=== PATIENT | male | born 1950 | race Caucasian/White ===

== ENCOUNTER → 2019-08-14 10:02 | Outpatient (BNVA) | payer MEDICARE, BC, SELFPAY | PROVIDERS: Family Provider Family Medicine; PCP Family Medicine; Visit Provider Specialist | DX: G51.39 Clonic hemifacial spasm, unspecified (principal); G50.9 Disorder of trigeminal nerve, unspecified | CPT/HCPCS: 64612; J0585 ==

== ENCOUNTER → 2019-11-27 12:13 | Outpatient (BNVA) | payer MEDICARE, BC, SELFPAY | PROVIDERS: Family Provider Family Medicine; PCP Family Medicine; Visit Provider Specialist | DX: G43.909 Migraine, unspecified, not intractable, without status migrainosus (principal); G50.9 Disorder of trigeminal nerve, unspecified; G51.31 Clonic hemifacial spasm, right | CPT/HCPCS: 64612; J0585 ==

== ENCOUNTER → 2021-01-24 09:48 | Outpatient (BNVA) | payer MEDICARE, BC, SELFPAY | PROVIDERS: Family Provider Family Medicine; PCP Family Medicine; Visit Provider Specialist | DX: G50.9 Disorder of trigeminal nerve, unspecified (principal); G51.31 Clonic hemifacial spasm, right; Z87.891 Personal history of nicotine dependence | CPT/HCPCS: 99213 ==

== ENCOUNTER → 2021-07-25 09:44 | Outpatient (BNVA) | payer MEDICARE, BC, SELFPAY | PROVIDERS: Family Provider Family Medicine; PCP Family Medicine; Visit Provider Specialist | DX: G50.0 Trigeminal neuralgia (principal); Z71.85 Encounter for immunization safety counseling | CPT/HCPCS: 99213 ==

== ENCOUNTER → 2022-07-25 10:32 | Outpatient (BNVA) | payer MEDICARE, BC, SELFPAY | PROVIDERS: Family Provider Family Medicine; PCP Family Medicine; Visit Provider Specialist | DX: G50.9 Disorder of trigeminal nerve, unspecified (principal); G51.31 Clonic hemifacial spasm, right | CPT/HCPCS: 99213 ==

== ENCOUNTER → 2023-07-23 10:53 | Outpatient (BNVA) | payer MEDICARE, OTHER, BC, SELFPAY | PROVIDERS: Family Provider Family Medicine; PCP Family Medicine; Visit Provider Specialist | DX: R29.90 Unspecified symptoms and signs involving the nervous system (principal); G50.9 Disorder of trigeminal nerve, unspecified; G51.31 Clonic hemifacial spasm, right; G31.84 Mild cognitive impairment of uncertain or unknown etiology | CPT/HCPCS: 96116; 99214 ==

== ENCOUNTER → 2024-07-22 14:22 | Outpatient (BNVA) | payer MEDICARE, BC, OTHER, SELFPAY | PROVIDERS: Family Provider Family Medicine; PCP Family Medicine; Visit Provider Specialist | DX: R29.90 Unspecified symptoms and signs involving the nervous system (principal); G50.9 Disorder of trigeminal nerve, unspecified; G51.31 Clonic hemifacial spasm, right; G31.84 Mild cognitive impairment of uncertain or unknown etiology; E21.0 Primary hyperparathyroidism | CPT/HCPCS: 99204; 99213; 99214 ==

== ENCOUNTER 2024-08-18 08:36 | Outpatient (CLI) | payer MEDICARE, BC, SELFPAY ==
--- NOTE | 2024-08-18 09:00 | NM_ITS ---
WS: [id number] EXAMINATION: NM parathyroid 30202 ORDER DATE: 08/18/2024 9:00 AM COMPARISON: None HISTORY: R29.90 - Unspecified symptoms and signs involving the ner... TECHNIQUE: Parathyroid scintigraphy with 20.2 mCi of technetium 99m sestamibi administered. AP and ob lique views obtained with and without chin and suprasternal notch markers. Initial and 2 hour delayed imagi ng acquired. FINDINGS: Normal initial thyroid and salivary gland uptake. Normal thyroid washout on the delayed images. No fo ci of retained activity to indicate parathyroid adenoma. NM/NM parathyroid 66861 IMPRESSION: No evidence of parathyroid adenoma.
--- NOTE | 2024-08-18 14:00 | XR_ITS ---
WS: [id number] DEXA (DUAL ENERGY X-RAY ABSORPTIOMETRY) Bone mineral density was performed using a [employer] machine. HISTORY: M81.0 - Age-related osteoporosis without current patholog... COMPARISON: None available. Lumbar spine BMD (L1-L4): 1.171 g/cm2 T score: -0.4 Z score: -0.1 Total hip BMD: Left: 0.806 g/cm2. T score: -2.1 Z score: -1.4 Right: 0.777 g/cm2. T score: -2.2 Z score: -1.6 10 year probability of a major osteoporotic fracture is 8.8%. XR/XR DEXA axial skeleton* 95167 IMPRESSION: OSTEOPENIA. Osteopenia related to the hips. Normal bone mineral density in the lumbar spine.
== END 2024-08-18 08:37 | disposition home or self-care (01) ==
PROVIDERS: PCP Family Medicine; Visit Provider Internal Medicine
DX: M81.0 Age-related osteoporosis without current pathological fracture (principal); R29.90 Unspecified symptoms and signs involving the nervous system; G50.9 Disorder of trigeminal nerve, unspecified; G31.84 Mild cognitive impairment of uncertain or unknown etiology; G51.31 Clonic hemifacial spasm, right; R79.89 Other specified abnormal findings of blood chemistry; M85.88 Other specified disorders of bone density and structure, other site
CPT/HCPCS: 77080; 78070; A9500

== ENCOUNTER → 2024-10-16 12:14 | Outpatient (BNVA) | payer MEDICARE, BC, SELFPAY | PROVIDERS: PCP Family Medicine; Visit Provider Internal Medicine | DX: E21.0 Primary hyperparathyroidism (principal); G31.84 Mild cognitive impairment of uncertain or unknown etiology | CPT/HCPCS: 36415; 80053; 82310; 83970 ==

== ENCOUNTER 2025-04-16 10:53 | Outpatient (CLI) | payer MEDICARE, BC, SELFPAY ==
--- NOTE | 2025-04-16 11:01 | XRR_ITS ---
PROCEDURE INFORMATION: Exam: XR Abdomen Exam date and time: 04/16/2025 11:19 AM Age: 74 years old Clinical indication: Abdominal pain; Has been having trouble w/his pancreas x few months; Additional info: See below TECHNIQUE: Imaging protocol: Radiologic exam of the abdomen. Views: Frontal supine view of the abdomen. 1 View. COMPARISON: No relevant prior studies available. FINDINGS: Gastrointestinal tract: Significant stool burden. Clinically correlate for constipation. No air-fluid levels. Vasculature: Phleboliths in pelvis. Bones/joints: Less than 10 degree dextroscoliosis lumbar spine in the setting of multilevel degenerative changes most significant at L4-L5 and L5-S1 with degenerative disc disease and osteophyte formation. XR/XR KUB [id number] IMPRESSION: Significant stool burden. Clinically correlate for constipation. No air-fluid levels.
[2025-04-16 12:26] LABS: Calcium 10.6 mg/dL (8.5-10.5)
[2025-04-16 13:07] LABS: Alanine Aminotransferase 22 U/L (0-41); Albumin Level 4.4 g/dL (3.5-5.2); Alkaline Phosphatase 104 U/L (40-130); Anion Gap 15.8 (5-19); Aspartate Amino Transferase 23 U/L (0-40); Blood Urea Nitrogen 29 mg/dL (8-23); Calcium 10.6 mg/dL (8.5-10.5); Carbon Dioxide 23 mmol/L (22-29); Chloride 105 mmol/L (98-107); Globulin 2.8 g/dL (1.3-4.6); Glucose 104 mg/dL (65-115); Osmolality Calculated 294 mOsm/kg (285-295); Potassium 4.8 mmol/L (3.5-5.1); Sodium 139 mmol/L (136-145); Total Protein 7.2 g/dL (6.6-8.7)
== END 2025-04-16 10:54 | disposition home or self-care (01) ==
PROVIDERS: PCP Family Medicine; Visit Provider Internal Medicine
DX: E21.0 Primary hyperparathyroidism (principal); G31.84 Mild cognitive impairment of uncertain or unknown etiology; K56.41 Fecal impaction; I87.8 Other specified disorders of veins; M51.369 Other intervertebral disc degeneration, lumbar region without mention of lumbar back pain or lower extremity pain; M51.379 Other intervertebral disc degeneration, lumbosacral region without mention of lumbar back pain or lower extremity pain
CPT/HCPCS: 36415; 74018; 80053; 82310; 83970

== ENCOUNTER 2025-06-04 08:38 | Outpatient (CLI) | payer MEDICARE, SELFPAY ==
--- NOTE | 2025-06-04 09:00 | US_ITS ---
WS: [id number] RIGHT UPPER QUADRANT ULTRASOUND HISTORY: kidney calcifications COMPARISON: None available. Liver: 16.5 cm in length. Normal size liver and echogenicity. No bile duct dilatation or mass. Portal Vein: Normal hepatopetal flow with monophasic waveform. Gallbladder: Normally distended gallbladder with no stones or wall thickening. CBD: 0.5 cm Pancreas: Completely obscured by bowel gas. Right kidney: 11.9 cm in length. Normal size kidney with no hydronephrosis. Cortical cyst from the mid kidney measures 4.0 x 4.4 x 3.7 cm. Aorta and IVC: Unremarkable abdominal aorta and IVC. No ascites. US/US abdomen limited [id number] IMPRESSION: 1. Negative gallbladder. 2. No renal obstruction. 3. RIGHT renal cyst, 4.0 x 4.4 x 3.7 cm.
== END 2025-06-04 08:39 | disposition home or self-care (01) ==
LOC: RAD 08:39
PROVIDERS: PCP Family Medicine; Visit Provider Internal Medicine
DX: N20.0 Calculus of kidney (principal); N28.1 Cyst of kidney, acquired
CPT/HCPCS: 76705

== ENCOUNTER → 2025-07-14 09:27 | Outpatient (BNVA) | payer MEDICARE, SELFPAY | PROVIDERS: PCP Family Medicine; Visit Provider Specialist | DX: G31.84 Mild cognitive impairment of uncertain or unknown etiology (principal); G51.31 Clonic hemifacial spasm, right; R03.0 Elevated blood-pressure reading, without diagnosis of hypertension | CPT/HCPCS: 36415; 82542; 83520; 99214 ==